=== PATIENT | male | born 1945 | race African-American/Black ===

== ENCOUNTER 2017-09-18 16:32 | Inpatient (IN) | payer MEDICARE ==
[2017-09-18 18:12] LABS: HEMATOCRIT 37.1 % (39.0-53.0); HEMOGLOBIN 12.1 g/dL (13.0-17.5); MEAN CORPUSCULAR HEMOGLOBIN 27 pg (25-35); MEAN CORPUSCULAR HGB CONC 33 g/dL (31-37); MEAN CORPUSCULAR VOLUME 82 fL (79-100); PLATELET COUNT 119 x10^3/uL (140-400); RED BLOOD COUNT 4.54 x10^6/uL (4.30-5.70); RED CELL DISTRIBUTION WIDTH 15.2 % (11.5-14.5)
[2017-09-18 18:20] LABS: BILIRUBIN,URINE NEGATIVE (NEG); CLARITY,URINE CLEAR; COLOR,URINE YELLOW; GLUCOSE,URINE >=1000 mg/dL (NEG); NITRITE,URINE NEGATIVE (NEG); PH,URINE 5.5; PROTEIN,URINE NEGATIVE (NEG-TRACE); UROBILINOGEN,URINE 0.2 mg/dL (0.2 mg/dL)
[2017-09-18 18:27] LABS: ANION GAP 13 (6-14); BLOOD UREA NITROGEN 76 mg/dL (8-26); BUN/CREATININE RATIO 7 (6-20); CARBON DIOXIDE 23 mmol/L (21-32); CHLORIDE 91 mmol/L (98-107); GFR 5.6; GLUCOSE 357 mg/dL (70-99); POTASSIUM 4.6 mmol/L (3.5-5.1); SODIUM 127 mmol/L (136-145)
[2017-09-18 18:33] LABS: ALBUMIN 2.8 g/dL (3.4-5.0); ALBUMIN/GLOBULIN RATIO 0.7 (1.0-1.7); ALK PHOS 56 U/L (46-116); ALT (SGPT) 8 U/L (16-63); AST (SGOT) 11 U/L (15-37); BACTERIA,URINE 0 /HPF (0-FEW); HYALINE CASTS, URINE FEW /HPF; SQUAMOUS EPITHELIAL CELL,UR FEW /LPF; TOTAL BILIRUBIN 0.4 mg/dL (0.2-1.0); TOTAL PROTEIN 7.1 g/dL (6.4-8.2)
[2017-09-18] MEDS ORDERED: MORPHINE SULFATE 4 MG/ML DISP.SYRIN. IV (19:30)
[2017-09-18] MEDS ORDERED: ONDANSETRON PF 4 MG/2 ML VIAL. IV (19:30)
[2017-09-18 19:56] LABS: AGAP ISTAT 13 mmol/L (6-14); BUN ISTAT 83 mg/dL (8-26); CHLORIDE ISTAT 101 mmol/L (98-110); CREATININE ISTAT 9.2 mg/dL (0.5-1.4); GLUCOSE ISTAT 314 mg/dL (70-99); HEMATOCRIT ISTAT 33 % (37-52); HEMOGLOBIN ISTAT 11.2 g/dL (14-18); ION CA ISTAT 0.82 mmol/L (1.13-1.32); POTASSIUM ISTAT 5.9 mmol/L (3.5-5.0); SODIUM ISTAT 130 mmol/L (135-145); TOT CO2 ISTAT 23 mmol/L (23-32)
[2017-09-18] MEDS: LABETALOL 20 MG/4 ML DISP.SYRIN. IVP (22:07)
[2017-09-19 00:15] LABS: INFLUENZA A PATIENT NEGATIVE (NEGATIVE); INFLUENZA B PATIENT NEGATIVE (NEGATIVE); OBC FLU VALID
[2017-09-19 06:05] LABS: ADD MAN DIFF? NO
[2017-09-19 06:35] LABS: BASO % 1 % (0-3); EOS # 0.1 x10^3/uL (0.0-0.7); EOS % 2 % (0-3); HEMATOCRIT 37.8 % (39.0-53.0); HEMOGLOBIN 12.2 g/dL (13.0-17.5); LYMPH % 15 % (24-48); MEAN CORPUSCULAR HEMOGLOBIN 26 pg (25-35); MEAN CORPUSCULAR HGB CONC 32 g/dL (31-37); MEAN CORPUSCULAR VOLUME 82 fL (79-100); MONO # 0.7 x10^3/uL (0.0-1.1); MONO % 10 % (0-9); NEUT # 4.7 x10^3uL (1.8-7.7); NEUT % 72 % (31-73); PLATELET COUNT 133 x10^3/uL (140-400); RED BLOOD COUNT 4.64 x10^6/uL (4.30-5.70); RED CELL DISTRIBUTION WIDTH 15.6 % (11.5-14.5); WHITE BLOOD COUNT 6.6 x10^3/uL (4.0-11.0)
[2017-09-19 06:45] LABS: ALBUMIN 2.8 g/dL (3.4-5.0); ALBUMIN/GLOBULIN RATIO 0.6 (1.0-1.7); ALK PHOS 51 U/L (46-116); ALT (SGPT) 15 U/L (16-63); ANION GAP 9 (6-14); AST (SGOT) 14 U/L (15-37); BLOOD UREA NITROGEN 50 mg/dL (8-26); BUN/CREATININE RATIO 10 (6-20); CALCIUM 8.2 mg/dL (8.5-10.1); CARBON DIOXIDE 25 mmol/L (21-32); CHLORIDE 97 mmol/L (98-107); CREATININE 4.9 mg/dL (0.7-1.3); GFR 14.3; GLUCOSE 454 mg/dL (70-99); POTASSIUM 4.5 mmol/L (3.5-5.1); SODIUM 131 mmol/L (136-145); TOTAL BILIRUBIN 0.4 mg/dL (0.2-1.0); TOTAL PROTEIN 7.2 g/dL (6.4-8.2)
[2017-09-19 08:04] LABS: POC GLUCOSE 345 mg/dL (70-99)
[2017-09-19] MEDS ORDERED: DEXTROSE 50% 25 GM / 50ML DISP.SYRIN. IV (08:45)
[2017-09-19] MEDS: LEVOTHYROXINE 150 MCG TABLET PO (09:01)
[2017-09-19] MEDS: METOPROLOL SUCC 24HR ER 50 MG TAB.ER.24H. PO ×2 (09:01→21:20)
[2017-09-19] MEDS: DOXAZOSIN MESYLATE 4 MG TABLET. PO ×2 (09:02→21:20)
[2017-09-19] MEDS: INSULIN ASPART 300 UNITS/3 ML INSULN.PEN SQ ×6 (09:05→17:43)
[2017-09-19] MEDS ORDERED: MAGNESIUM SULFATE 2GM 50 ML IV (09:45)
[2017-09-19] MEDS: TAMSULOSIN 0.4 MG CAP.ER.24H. PO (11:15)
[2017-09-19] MEDS: FINASTERIDE 5 MG TABLET. PO (11:16)
[2017-09-19] MEDS: FLU VACC QS2017-18 (36MOS+)/PF 0.5 ML SYRINGE. VAX IM (11:18)
[2017-09-19] MEDS: IV 1/2 NORMAL SALINE 1,000 ML IV ×2 (11:18→23:09)
[2017-09-19 11:34] LABS: POC GLUCOSE 235 mg/dL (70-99)
[2017-09-19 17:15] LABS: POC GLUCOSE 439 mg/dL (70-99)
[2017-09-19 20:36] LABS: POC GLUCOSE 253 mg/dL (70-99)
[2017-09-19] MEDS: INSULIN DETEMIR 300 UNITS/3 ML INSULN.PEN. SQ (21:30)
[2017-09-20 04:37] LABS: HEMOGLOBIN 11.2 g/dL (13.0-17.5)
[2017-09-20 05:00] LABS: MAGNESIUM 1.7 mg/dL (1.8-2.4)
[2017-09-20 05:45] LABS: ALBUMIN 2.5 g/dL (3.4-5.0); ANION GAP 7 (6-14); BLOOD UREA NITROGEN 26 mg/dL (8-26); CARBON DIOXIDE 26 mmol/L (21-32); CHLORIDE 102 mmol/L (98-107); CREATININE 1.6 mg/dL (0.7-1.3); GLUCOSE 180 mg/dL (70-99); PHOSPHORUS 2.4 mg/dL (2.6-4.7); POTASSIUM 4.3 mmol/L (3.5-5.1); SODIUM 135 mmol/L (136-145)
[2017-09-20] MEDS: LEVOTHYROXINE 150 MCG TABLET PO (05:59)
[2017-09-20] MEDS: INSULIN ASPART 300 UNITS/3 ML INSULN.PEN SQ ×5 (08:00→17:17)
[2017-09-20] MEDS: FINASTERIDE 5 MG TABLET. PO (08:14)
[2017-09-20] MEDS: DOXAZOSIN MESYLATE 4 MG TABLET. PO (08:15)
[2017-09-20] MEDS: TAMSULOSIN 0.4 MG CAP.ER.24H. PO ×2 (08:15→11:26)
[2017-09-20] MEDS: METOPROLOL SUCC 24HR ER 50 MG TAB.ER.24H. PO (08:16)
[2017-09-20 11:39] LABS: POC GLUCOSE 172 mg/dL (70-99)
[2017-09-20 11:39] LABS: POC GLUCOSE 140 mg/dL (70-99)
[2017-09-20] MEDS: MAGNESIUM SULFATE 2GM 50 ML IV (12:11)
[2017-09-20] MEDS: POTASSIUM & SODIUM PHOSPHATES PACKET. PO (13:03)
[2017-09-20 16:45] LABS: POC GLUCOSE 136 mg/dL (70-99)
== END 2017-09-20 18:02 | disposition home or self-care (01) | DRG 693 ==
LOC: 5 NORTH 21:05 → ER 16:32 → 5 NORTH 19:23
PROC: 0T9B70Z Drainage of Bladder with Drainage Device, Via Natural or Artificial Opening (ICD-10-PCS; principal; 2017-09-18)
DX: N13.8 Other obstructive and reflux uropathy (principal); N17.0 Acute kidney failure with tubular necrosis; E44.1 Mild protein-calorie malnutrition; N39.0 Urinary tract infection, site not specified; N13.30 Unspecified hydronephrosis; E11.22 Type 2 diabetes mellitus with diabetic chronic kidney disease; E11.65 Type 2 diabetes mellitus with hyperglycemia; E83.42 Hypomagnesemia; N40.1 Benign prostatic hyperplasia with lower urinary tract symptoms; R33.8 Other retention of urine; I86.1 Scrotal varices; N50.3 Cyst of epididymis; N32.0 Bladder-neck obstruction; N18.9 Chronic kidney disease, unspecified; I10 Essential (primary) hypertension; Z77.22 Contact with and (suspected) exposure to environmental tobacco smoke (acute) (chronic); Z83.3 Family history of diabetes mellitus; Z82.49 Family history of ischemic heart disease and other diseases of the circulatory system; Z79.4 Long term (current) use of insulin
CPT/HCPCS: 36415; 51702; 76770; 76870; 80047; 80053; 80069; 81001; 82962; 83735; 85018; 85025; 85027; 87804; 87804-59; 90686; 99285-25; J1815; J3490; J7060

== ENCOUNTER 2017-10-06 14:28 | Inpatient (IN) | payer MEDICARE ==
[2017-10-06 15:13] LABS: ADD MAN DIFF? NO
[2017-10-06 15:15] LABS: BASO % 0 % (0-3); EOS % 0 % (0-3); HEMATOCRIT 24.2 % (39.0-53.0); HEMOGLOBIN 7.7 g/dL (13.0-17.5); LYMPH # 0.7 x10^3/uL (1.0-4.8); LYMPH % 9 % (24-48); MEAN CORPUSCULAR HEMOGLOBIN 27 pg (25-35); MEAN CORPUSCULAR HGB CONC 32 g/dL (31-37); MEAN CORPUSCULAR VOLUME 83 fL (79-100); MONO # 0.5 x10^3/uL (0.0-1.1); MONO % 6 % (0-9); NEUT # 6.6 x10^3uL (1.8-7.7); NEUT % 84 % (31-73); PLATELET COUNT 161 x10^3/uL (140-400); RED BLOOD COUNT 2.91 x10^6/uL (4.30-5.70); RED CELL DISTRIBUTION WIDTH 14.4 % (11.5-14.5); WHITE BLOOD COUNT 7.8 x10^3/uL (4.0-11.0)
[2017-10-06 15:25] LABS: INR 1.3 (0.8-1.1); PROTHROMBIN TIME PATIENT 15.7 SEC (11.7-14.0)
[2017-10-06 15:28] LABS: ALBUMIN 2.2 g/dL (3.4-5.0); ALBUMIN/GLOBULIN RATIO 0.5 (1.0-1.7); ALK PHOS 87 U/L (46-116); ALT (SGPT) 21 U/L (16-63); ANION GAP 11 (6-14); AST (SGOT) 11 U/L (15-37); BLOOD UREA NITROGEN 110 mg/dL (8-26); BUN/CREATININE RATIO 9 (6-20); CALCIUM 7.1 mg/dL (8.5-10.1); CARBON DIOXIDE 19 mmol/L (21-32); CHLORIDE 84 mmol/L (98-107); CREATININE 12.5 mg/dL (0.7-1.3); GFR 4.8; LIPASE 115 U/L (73-393); TOTAL BILIRUBIN 0.2 mg/dL (0.2-1.0); TOTAL PROTEIN 6.7 g/dL (6.4-8.2)
[2017-10-06 15:56] LABS: GLUCOSE 859 mg/dL (70-99)
[2017-10-06 15:57] LABS: POTASSIUM 7.2 mmol/L (3.5-5.1); SODIUM 114 mmol/L (136-145)
[2017-10-06] MEDS: INSULIN REGULAR 100 UNIT/ML 10ML VIAL. IV (16:15)
[2017-10-06 16:17] LABS: BILIRUBIN,URINE NEGATIVE (NEG); CLARITY,URINE TURBID; COLOR,URINE RED; GLUCOSE,URINE >=1000 mg/dL (NEG); NITRITE,URINE NEGATIVE (NEG); PROTEIN,URINE 100 mg/dL (NEG-TRACE); UROBILINOGEN,URINE 0.2 mg/dL (0.2 mg/dL)
[2017-10-06 16:23] LABS: FECAL OB PT POSITIVE (NEG); NEG OBC FOB NEG; POS OBC FOB POS
[2017-10-06] MEDS ORDERED: INSULIN REGULAR VIAL 150 UNIT in 0.9 % SODIUM CHLORIDE 150ML 150 ML IV (16:30)
[2017-10-06 16:38] LABS: RBC,URINE TNTC /HPF (0-2); WBC,URINE 20-40 /HPF (0-4)
[2017-10-06 16:39] LABS: BACTERIA,URINE 0 /HPF (0-FEW); YEAST,URINE PRESENT /HPF
[2017-10-06] MEDS ORDERED: MORPHINE SULFATE 2 MG/ML DISP.SYRIN. IV (16:45)
[2017-10-06] MEDS ORDERED: fentaNYL PF VIAL 100 MCG/2 ML VIAL IV ×2 (16:45→17:00)
[2017-10-06] MEDS: SODIUM BICARB ADULT 8.4% 50 MEQ/50 ML DISP.SYRIN. IV (16:47)
[2017-10-06] MEDS: CALCIUM GLUCONATE 1,000 MG/10 ML VIAL. IVP (16:48)
[2017-10-06] MEDS ORDERED: ONDANSETRON PF 4 MG/2 ML VIAL. IV (17:00)
[2017-10-06] MEDS: INSULIN,REGULAR 150 UNIT DRIP 150 ML IV (17:09)
[2017-10-06 18:24] LABS: POC GLUCOSE 481 mg/dL (70-99)
[2017-10-06] MEDS: IV NORMAL SALINE 1000ML BAG 1,000 ML IV (18:30)
[2017-10-06 20:20] LABS: ANION GAP 10 (6-14); BLOOD UREA NITROGEN 92 mg/dL (8-26); CALCIUM 7.9 mg/dL (8.5-10.1); CARBON DIOXIDE 21 mmol/L (21-32); CHLORIDE 96 mmol/L (98-107); CREATININE 9.2 mg/dL (0.7-1.3); GFR 6.9; GLUCOSE 397 mg/dL (70-99); POTASSIUM 5.3 mmol/L (3.5-5.1); SODIUM 127 mmol/L (136-145)
[2017-10-06 20:52] LABS: POC GLUCOSE 397 mg/dL (70-99)
[2017-10-06] MEDS: METOPROLOL SUCC 24HR ER 50 MG TAB.ER.24H. PO (21:05)
[2017-10-06] MEDS: DOXAZOSIN MESYLATE 4 MG TABLET. PO (21:06)
[2017-10-06 21:59] LABS: POC GLUCOSE 262 mg/dL (70-99)
[2017-10-06 23:20] LABS: POC GLUCOSE 191 mg/dL (70-99)
[2017-10-07 00:11] LABS: POC GLUCOSE 158 mg/dL (70-99)
[2017-10-07 01:19] LABS: POC GLUCOSE 126 mg/dL (70-99)
[2017-10-07 02:23] LABS: POC GLUCOSE 101 mg/dL (70-99)
[2017-10-07 03:41] LABS: ADD MAN DIFF? NO
[2017-10-07 03:46] LABS: BASO # 0.1 x10^3/uL (0.0-0.2); BASO % 1 % (0-3); EOS # 0.2 x10^3/uL (0.0-0.7); EOS % 2 % (0-3); LYMPH # 1.3 x10^3/uL (1.0-4.8); LYMPH % 17 % (24-48); MEAN CORPUSCULAR HEMOGLOBIN 26 pg (25-35); MEAN CORPUSCULAR HGB CONC 33 g/dL (31-37); MEAN CORPUSCULAR VOLUME 79 fL (79-100); MONO # 0.8 x10^3/uL (0.0-1.1); MONO % 10 % (0-9); NEUT # 5.2 x10^3uL (1.8-7.7); NEUT % 70 % (31-73); PLATELET COUNT 152 x10^3/uL (140-400); RED BLOOD COUNT 2.49 x10^6/uL (4.30-5.70); RED CELL DISTRIBUTION WIDTH 14.5 % (11.5-14.5); WHITE BLOOD COUNT 7.4 x10^3/uL (4.0-11.0)
[2017-10-07 03:47] LABS: HEMATOCRIT 19.7 % (39.0-53.0); HEMOGLOBIN 6.6 g/dL (13.0-17.5)
[2017-10-07] MEDS: IV NORMAL SALINE 1000ML BAG 1,000 ML IV ×2 (04:04→13:42)
[2017-10-07 04:22] LABS: ANION GAP 9 (6-14); BLOOD UREA NITROGEN 74 mg/dL (8-26); CALCIUM 7.8 mg/dL (8.5-10.1); CARBON DIOXIDE 23 mmol/L (21-32); CHLORIDE 100 mmol/L (98-107); CREATININE 5.6 mg/dL (0.7-1.3); GFR 12.2; GLUCOSE 108 mg/dL (70-99); POTASSIUM 4.6 mmol/L (3.5-5.1); SODIUM 132 mmol/L (136-145)
[2017-10-07] MEDS: LEVOTHYROXINE 150 MCG TABLET PO (06:30)
[2017-10-07] MEDS: FINASTERIDE 5 MG TABLET. PO (08:17)
[2017-10-07] MEDS: DOXAZOSIN MESYLATE 4 MG TABLET. PO ×2 (08:17→21:18)
[2017-10-07] MEDS: METOPROLOL SUCC 24HR ER 50 MG TAB.ER.24H. PO ×2 (08:18→21:18)
[2017-10-07 08:21] LABS: POC GLUCOSE 326 mg/dL (70-99)
[2017-10-07 08:29] LABS: POC GLUCOSE 148 mg/dL (70-99)
[2017-10-07 09:06] LABS: IMMEDIATE SPIN CROSSMATCH 1 2
[2017-10-07] MEDS ORDERED: MAGNESIUM SULFATE 2GM 50 ML IV (09:15)
[2017-10-07 09:30] LABS: % SAT IRON 25 % (15-34); IRON,SERUM 37 ug/dL (65-175)
[2017-10-07] MEDS ORDERED: MORPHINE SULFATE 2 MG/ML DISP.SYRIN. IV (09:30)
[2017-10-07] MEDS ORDERED: DEXTROSE 50% 25 GM / 50ML DISP.SYRIN. IV ×2 (09:30→19:00)
[2017-10-07] MEDS ORDERED: DOCUSATE SODIUM 100 MG CAPSULE. PO (09:30)
[2017-10-07] MEDS ORDERED: hydrALAZINE 20 MG/ML VIAL. IVP (09:30)
[2017-10-07] MEDS ORDERED: ONDANSETRON PF 4 MG/2 ML VIAL. IV (09:30)
[2017-10-07] MEDS ORDERED: traMADol 50 MG TABLET PO (09:30)
[2017-10-07 09:44] LABS: FERRITIN 418 ng/mL (26-388)
[2017-10-07] MEDS: PANTOPRAZOLE 40 MG TABLET.DR. PO (11:49)
[2017-10-07] MEDS: INSULIN ASPART 300 UNITS/3 ML INSULN.PEN SQ ×3 (12:00→21:19)
[2017-10-07 12:09] LABS: POC GLUCOSE 243 mg/dL (70-99)
[2017-10-07 14:15] LABS: RETIC COUNT 0.3 % (0.5-2.5)
[2017-10-07 16:26] LABS: MRSA BY PCR Negative (Negative)
[2017-10-07 18:22] LABS: POC GLUCOSE 362 mg/dL (70-99)
[2017-10-07 20:33] LABS: POC GLUCOSE 377 mg/dL (70-99)
[2017-10-07] MEDS: INSULIN DETEMIR 300 UNITS/3 ML INSULN.PEN. SQ (21:19)
[2017-10-08] MEDS: IV NORMAL SALINE 1000ML BAG 1,000 ML IV ×3 (00:14→18:45)
[2017-10-08 05:03] LABS: ADD MAN DIFF? NO
[2017-10-08 05:17] LABS: BASO # 0.1 x10^3/uL (0.0-0.2); BASO % 1 % (0-3); EOS # 0.2 x10^3/uL (0.0-0.7); EOS % 3 % (0-3); LYMPH # 1.3 x10^3/uL (1.0-4.8); LYMPH % 19 % (24-48); MEAN CORPUSCULAR HEMOGLOBIN 27 pg (25-35); MEAN CORPUSCULAR HGB CONC 34 g/dL (31-37); MEAN CORPUSCULAR VOLUME 80 fL (79-100); MONO # 0.7 x10^3/uL (0.0-1.1); MONO % 10 % (0-9); NEUT # 4.7 x10^3uL (1.8-7.7); NEUT % 67 % (31-73); PLATELET COUNT 175 x10^3/uL (140-400); RED BLOOD COUNT 2.56 x10^6/uL (4.30-5.70); RED CELL DISTRIBUTION WIDTH 14.8 % (11.5-14.5)
[2017-10-08] MEDS: LEVOTHYROXINE 150 MCG TABLET PO (05:23)
[2017-10-08 05:32] LABS: % SAT IRON 19 % (15-34); IRON,SERUM 28 ug/dL (65-175)
[2017-10-08 05:45] LABS: FERRITIN 376 ng/mL (26-388)
[2017-10-08 05:54] LABS: ALBUMIN 1.9 g/dL (3.4-5.0); ANION GAP 5 (6-14); BLOOD UREA NITROGEN 31 mg/dL (8-26); CALCIUM 7.5 mg/dL (8.5-10.1); CARBON DIOXIDE 26 mmol/L (21-32); CHLORIDE 108 mmol/L (98-107); CREATININE 1.7 mg/dL (0.7-1.3); GFR 48.5; GLUCOSE 234 mg/dL (70-99); MAGNESIUM 1.6 mg/dL (1.8-2.4); PHOSPHORUS 3.1 mg/dL (2.6-4.7); POTASSIUM 4.4 mmol/L (3.5-5.1); SODIUM 139 mmol/L (136-145)
[2017-10-08 06:00] LABS: HEMATOCRIT 20.5 % (39.0-53.0); HEMOGLOBIN 6.9 g/dL (13.0-17.5)
[2017-10-08 07:51] LABS: POC GLUCOSE 172 mg/dL (70-99)
[2017-10-08 08:11] LABS: FOLATE 5.69 ng/ml (3.2-20.0)
[2017-10-08 08:11] LABS: VITAMIN-B12 326 pg/mL (247-911)
[2017-10-08] MEDS: METOPROLOL SUCC 24HR ER 50 MG TAB.ER.24H. PO ×2 (08:16→20:46)
[2017-10-08] MEDS: DOXAZOSIN MESYLATE 4 MG TABLET. PO ×2 (08:16→20:46)
[2017-10-08] MEDS: PANTOPRAZOLE 40 MG TABLET.DR. PO (08:16)
[2017-10-08] MEDS: FINASTERIDE 5 MG TABLET. PO (08:16)
[2017-10-08] MEDS: INSULIN ASPART 300 UNITS/3 ML INSULN.PEN SQ ×4 (08:27→20:50)
[2017-10-08] MEDS: GABAPENTIN 100 MG CAPSULE. PO ×2 (09:31→20:46)
[2017-10-08 10:35] LABS: IMMEDIATE SPIN CROSSMATCH 1
[2017-10-08 11:49] LABS: POC GLUCOSE 201 mg/dL (70-99)
[2017-10-08 12:07] LABS: POC GLUCOSE 219 mg/dL (70-99)
[2017-10-08 12:37] LABS: FECAL OB PT POSITIVE (NEG); NEG OBC FOB NEG; POS OBC FOB POS
[2017-10-08 16:38] LABS: HEMATOCRIT 24.4 % (39.0-53.0)
[2017-10-08 16:57] LABS: POC GLUCOSE 265 mg/dL (70-99)
[2017-10-08] MEDS: INSULIN DETEMIR 300 UNITS/3 ML INSULN.PEN. SQ (20:50)
[2017-10-09] MEDS: IV NORMAL SALINE 1000ML BAG 1,000 ML IV ×2 (04:45→14:15)
[2017-10-09 04:51] LABS: ADD MAN DIFF? NO
[2017-10-09 04:57] LABS: BASO # 0.1 x10^3/uL (0.0-0.2); BASO % 1 % (0-3); EOS # 0.3 x10^3/uL (0.0-0.7); EOS % 5 % (0-3); HEMATOCRIT 25.1 % (39.0-53.0); HEMOGLOBIN 8.3 g/dL (13.0-17.5); LYMPH # 1.7 x10^3/uL (1.0-4.8); LYMPH % 23 % (24-48); MEAN CORPUSCULAR HEMOGLOBIN 27 pg (25-35); MEAN CORPUSCULAR HGB CONC 33 g/dL (31-37); MEAN CORPUSCULAR VOLUME 82 fL (79-100); MONO # 0.6 x10^3/uL (0.0-1.1); MONO % 8 % (0-9); NEUT # 4.5 x10^3uL (1.8-7.7); NEUT % 63 % (31-73); PLATELET COUNT 198 x10^3/uL (140-400); RED BLOOD COUNT 3.08 x10^6/uL (4.30-5.70); RED CELL DISTRIBUTION WIDTH 14.8 % (11.5-14.5); WHITE BLOOD COUNT 7.2 x10^3/uL (4.0-11.0)
[2017-10-09 05:20] LABS: ALBUMIN 2.1 g/dL (3.4-5.0); ANION GAP 8 (6-14); BLOOD UREA NITROGEN 17 mg/dL (8-26); CALCIUM 8.3 mg/dL (8.5-10.1); CARBON DIOXIDE 26 mmol/L (21-32); CHLORIDE 104 mmol/L (98-107); CREATININE 1.4 mg/dL (0.7-1.3); GFR 60.6; GLUCOSE 188 mg/dL (70-99); MAGNESIUM 1.5 mg/dL (1.8-2.4); PHOSPHORUS 3.5 mg/dL (2.6-4.7); POTASSIUM 3.8 mmol/L (3.5-5.1); SODIUM 138 mmol/L (136-145)
[2017-10-09 06:32] LABS: POC GLUCOSE 258 mg/dL (70-99)
[2017-10-09] MEDS ORDERED: LIDOCAINE 1% PF 2 ML VIAL. ID (07:00)
[2017-10-09] MEDS ORDERED: ONDANSETRON PF 4 MG/2 ML VIAL. IV (07:00)
[2017-10-09] MEDS ORDERED: fentaNYL PF VIAL 100 MCG/2 ML VIAL IV ×2 (07:00)
[2017-10-09] MEDS: LEVOTHYROXINE 150 MCG TABLET PO (07:00)
[2017-10-09] MEDS ORDERED: MORPHINE SULFATE 2 MG/ML DISP.SYRIN. IV (07:00)
[2017-10-09] MEDS ORDERED: PROCHLORPERAZINE 10 MG/2 ML VIAL. IV (07:00)
[2017-10-09] MEDS: IV RINGERS,LACTATED 1000ML 1,000 ML IV (07:00)
[2017-10-09] MEDS: PANTOPRAZOLE 40 MG TABLET.DR. PO (07:30)
[2017-10-09] MEDS: INSULIN ASPART 300 UNITS/3 ML INSULN.PEN SQ ×4 (08:00→21:08)
[2017-10-09 08:35] LABS: POC GLUCOSE 143 mg/dL (70-99)
[2017-10-09] MEDS: GABAPENTIN 100 MG CAPSULE. PO (09:00)
[2017-10-09] MEDS: METOPROLOL SUCC 24HR ER 50 MG TAB.ER.24H. PO ×2 (09:00→21:00)
[2017-10-09] MEDS: DOXAZOSIN MESYLATE 4 MG TABLET. PO ×2 (09:00→21:01)
[2017-10-09] MEDS: FINASTERIDE 5 MG TABLET. PO (09:00)
[2017-10-09] MEDS: MAGNESIUM SULFATE 2GM 50 ML IV (11:14)
[2017-10-09 12:48] LABS: POC GLUCOSE 176 mg/dL (70-99)
[2017-10-09] MEDS: GABAPENTIN 300 MG CAPSULE. PO ×2 (12:50→21:01)
[2017-10-09 13:44] LABS: POC GLUCOSE 274 mg/dL (70-99)
[2017-10-09 17:35] LABS: POC GLUCOSE 527 mg/dL (70-99)
[2017-10-09] MEDS: FLUCONAZOLE 100 MG TABLET. PO (17:44)
[2017-10-09 20:04] LABS: POC GLUCOSE 447 mg/dL (70-99)
[2017-10-09] MEDS: ACETAMINOPHEN 325 MG TABLET. PO (21:00)
[2017-10-09] MEDS: INSULIN DETEMIR 300 UNITS/3 ML INSULN.PEN. SQ (21:08)
[2017-10-09 22:45] LABS: POC GLUCOSE 461 mg/dL (70-99)
[2017-10-10] MEDS: IV NORMAL SALINE 1000ML BAG 1,000 ML IV ×3 (00:07→20:45)
[2017-10-10 04:54] LABS: ALBUMIN 2.2 g/dL (3.4-5.0); ANION GAP 7 (6-14); BLOOD UREA NITROGEN 17 mg/dL (8-26); CALCIUM 7.8 mg/dL (8.5-10.1); CARBON DIOXIDE 25 mmol/L (21-32); CHLORIDE 97 mmol/L (98-107); CREATININE 1.9 mg/dL (0.7-1.3); GFR 42.6; GLUCOSE 433 mg/dL (70-99); MAGNESIUM 1.7 mg/dL (1.8-2.4); PHOSPHORUS 3.2 mg/dL (2.6-4.7); POTASSIUM 3.9 mmol/L (3.5-5.1); SODIUM 129 mmol/L (136-145)
[2017-10-10] MEDS: LEVOTHYROXINE 150 MCG TABLET PO (06:13)
[2017-10-10 08:28] LABS: POC GLUCOSE 339 mg/dL (70-99)
[2017-10-10] MEDS: DOXAZOSIN MESYLATE 4 MG TABLET. PO ×2 (08:36→20:25)
[2017-10-10] MEDS: FLUCONAZOLE 100 MG TABLET. PO (08:36)
[2017-10-10] MEDS: ACETAMINOPHEN 325 MG TABLET. PO (08:36)
[2017-10-10] MEDS: GABAPENTIN 300 MG CAPSULE. PO ×3 (08:36→20:25)
[2017-10-10] MEDS: PANTOPRAZOLE 40 MG TABLET.DR. PO (08:37)
[2017-10-10] MEDS: FINASTERIDE 5 MG TABLET. PO (08:37)
[2017-10-10] MEDS: METOPROLOL SUCC 24HR ER 50 MG TAB.ER.24H. PO ×2 (08:37→20:26)
[2017-10-10] MEDS: INSULIN ASPART 300 UNITS/3 ML INSULN.PEN SQ ×6 (08:41→20:28)
[2017-10-10 12:09] LABS: POC GLUCOSE 272 mg/dL (70-99)
[2017-10-10] MEDS: DOXYCYCLINE HYCLATE 100 MG TABLET PO ×2 (12:43→20:25)
[2017-10-10 14:44] LABS: HEMATOCRIT 24.9 % (39.0-53.0); MEAN CORPUSCULAR HEMOGLOBIN 27 pg (25-35); MEAN CORPUSCULAR HGB CONC 32 g/dL (31-37); MEAN CORPUSCULAR VOLUME 83 fL (79-100); PLATELET COUNT 202 x10^3/uL (140-400); RED BLOOD COUNT 2.99 x10^6/uL (4.30-5.70); RED CELL DISTRIBUTION WIDTH 15.1 % (11.5-14.5); WHITE BLOOD COUNT 8.8 x10^3/uL (4.0-11.0)
[2017-10-10 17:29] LABS: POC GLUCOSE 276 mg/dL (70-99)
[2017-10-10 19:39] LABS: POC GLUCOSE 359 mg/dL (70-99)
[2017-10-10] MEDS: LACTOBACILLUS RHAMNOSUS GG 1 CAPSULE. PO (20:26)
[2017-10-10] MEDS: INSULIN DETEMIR 300 UNITS/3 ML INSULN.PEN. SQ (20:29)
[2017-10-11] MEDS: IV NORMAL SALINE 1000ML BAG 1,000 ML IV ×2 (00:37→16:58)
[2017-10-11 04:55] LABS: ADD MAN DIFF? NO
[2017-10-11 05:00] LABS: BASO # 0.1 x10^3/uL (0.0-0.2); BASO % 1 % (0-3); EOS # 0.3 x10^3/uL (0.0-0.7); EOS % 4 % (0-3); HEMATOCRIT 22.3 % (39.0-53.0); HEMOGLOBIN 7.4 g/dL (13.0-17.5); LYMPH # 1.9 x10^3/uL (1.0-4.8); LYMPH % 23 % (24-48); MEAN CORPUSCULAR HEMOGLOBIN 27 pg (25-35); MEAN CORPUSCULAR HGB CONC 33 g/dL (31-37); MEAN CORPUSCULAR VOLUME 82 fL (79-100); MONO # 0.8 x10^3/uL (0.0-1.1); MONO % 10 % (0-9); NEUT # 5.3 x10^3uL (1.8-7.7); NEUT % 63 % (31-73); PLATELET COUNT 208 x10^3/uL (140-400); RED BLOOD COUNT 2.73 x10^6/uL (4.30-5.70); RED CELL DISTRIBUTION WIDTH 15.2 % (11.5-14.5); WHITE BLOOD COUNT 8.5 x10^3/uL (4.0-11.0)
[2017-10-11 05:33] LABS: MAGNESIUM 1.7 mg/dL (1.8-2.4)
[2017-10-11 05:39] LABS: ANION GAP 7 (6-14); BLOOD UREA NITROGEN 18 mg/dL (8-26); CALCIUM 7.7 mg/dL (8.5-10.1); CARBON DIOXIDE 25 mmol/L (21-32); CHLORIDE 103 mmol/L (98-107); CREATININE 1.8 mg/dL (0.7-1.3); GFR 45.4; GLUCOSE 248 mg/dL (70-99); PHOSPHORUS 3.3 mg/dL (2.6-4.7); POTASSIUM 3.9 mmol/L (3.5-5.1); SODIUM 135 mmol/L (136-145)
[2017-10-11] MEDS: LEVOTHYROXINE 150 MCG TABLET PO (06:21)
[2017-10-11] MEDS: INSULIN ASPART 300 UNITS/3 ML INSULN.PEN SQ ×7 (07:30→21:03)
[2017-10-11] MEDS: PANTOPRAZOLE 40 MG TABLET.DR. PO (07:30)
[2017-10-11] MEDS: LACTOBACILLUS RHAMNOSUS GG 1 CAPSULE. PO ×2 (07:46→20:59)
[2017-10-11 08:23] LABS: POC GLUCOSE 215 mg/dL (70-99)
[2017-10-11] MEDS: DOXAZOSIN MESYLATE 4 MG TABLET. PO ×2 (08:51→21:00)
[2017-10-11] MEDS: DOXYCYCLINE HYCLATE 100 MG TABLET PO ×2 (08:51→20:59)
[2017-10-11] MEDS: FLUCONAZOLE 100 MG TABLET. PO (08:52)
[2017-10-11] MEDS: METOPROLOL SUCC 24HR ER 50 MG TAB.ER.24H. PO ×2 (08:52→20:59)
[2017-10-11] MEDS: FINASTERIDE 5 MG TABLET. PO (08:53)
[2017-10-11] MEDS: GABAPENTIN 300 MG CAPSULE. PO ×3 (08:53→21:00)
[2017-10-11] MEDS ORDERED: LIDOCAINE 2%/EPI 1:100,000 20 ML VIAL. (09:40)
[2017-10-11] MEDS ORDERED: IOHEXOL 300 MG/ML 100ML VIAL. (09:40)
[2017-10-11] MEDS ORDERED: MIDAZOLAM HCL/PF 2 MG/2 ML VIAL. (10:15)
[2017-10-11] MEDS ORDERED: fentaNYL PF VIAL 100 MCG/2 ML VIAL (10:15)
[2017-10-11] MEDS ORDERED: CONTRAST GIVEN MC (10:30)
[2017-10-11] MEDS: LIDOCAINE 2%/EPI 1:100,000 20 ML VIAL. IJ (10:58)
[2017-10-11] MEDS: fentaNYL PF VIAL 100 MCG/2 ML VIAL IV (10:58)
[2017-10-11] MEDS: IOHEXOL 300 MG/ML 100ML VIAL. IART (10:58)
[2017-10-11] MEDS: MIDAZOLAM HCL/PF 2 MG/2 ML VIAL. IV (10:58)
[2017-10-11] MEDS: MAGNESIUM SULFATE 2GM 50 ML IV (11:00)
[2017-10-11 11:32] LABS: POC GLUCOSE 136 mg/dL (70-99)
[2017-10-11] MEDS ORDERED: IRON SUCROSE COMPLEX 200 MG in IV NORMAL SALINE 100ML 100 ML IV (15:45)
[2017-10-11] MEDS: VITAMIN B12,B9,B6 COMPLEX 1 TABLET. PO (15:59)
[2017-10-11] MEDS: IRON SUCROSE COMPLEX 100 MG/5 ML VIAL IVP (15:59)
[2017-10-11] MEDS: FERROUS SULFATE 325 MG TABLET. PO (16:00)
[2017-10-11 16:50] LABS: POC GLUCOSE 379 mg/dL (70-99)
[2017-10-11 20:50] LABS: POC GLUCOSE 308 mg/dL (70-99)
[2017-10-11] MEDS: INSULIN DETEMIR 300 UNITS/3 ML INSULN.PEN. SQ (21:04)
[2017-10-12] MEDS: IV NORMAL SALINE 1000ML BAG 1,000 ML IV ×2 (02:28→14:57)
[2017-10-12] MEDS: PANTOPRAZOLE 40 MG TABLET.DR. PO (04:24)
[2017-10-12] MEDS: LEVOTHYROXINE 150 MCG TABLET PO (04:24)
[2017-10-12 05:44] LABS: ALBUMIN 2.2 g/dL (3.4-5.0); ANION GAP 8 (6-14); BLOOD UREA NITROGEN 12 mg/dL (8-26); CALCIUM 7.7 mg/dL (8.5-10.1); CARBON DIOXIDE 25 mmol/L (21-32); CHLORIDE 101 mmol/L (98-107); CREATININE 1.3 mg/dL (0.7-1.3); GLUCOSE 458 mg/dL (70-99); PHOSPHORUS 2.8 mg/dL (2.6-4.7); POTASSIUM 4.1 mmol/L (3.5-5.1); SODIUM 134 mmol/L (136-145)
[2017-10-12 06:01] LABS: MAGNESIUM 1.6 mg/dL (1.8-2.4)
[2017-10-12] MEDS: MAGNESIUM SULFATE 2GM 50 ML IV (06:17)
[2017-10-12] MEDS: INSULIN ASPART 300 UNITS/3 ML INSULN.PEN SQ ×8 (07:30→21:58)
[2017-10-12] MEDS: ACETAMINOPHEN 325 MG TABLET. PO ×2 (07:34→20:50)
[2017-10-12 07:54] LABS: POC GLUCOSE 453 mg/dL (70-99)
[2017-10-12] MEDS: VITAMIN B12,B9,B6 COMPLEX 1 TABLET. PO (08:41)
[2017-10-12] MEDS: DOXAZOSIN MESYLATE 4 MG TABLET. PO ×2 (08:41→20:50)
[2017-10-12] MEDS: LACTOBACILLUS RHAMNOSUS GG 1 CAPSULE. PO ×2 (08:42→20:52)
[2017-10-12] MEDS: FERROUS SULFATE 325 MG TABLET. PO (08:42)
[2017-10-12] MEDS: DOXYCYCLINE HYCLATE 100 MG TABLET PO ×2 (08:42→20:52)
[2017-10-12] MEDS: METOPROLOL SUCC 24HR ER 50 MG TAB.ER.24H. PO ×2 (08:42→20:52)
[2017-10-12] MEDS: FINASTERIDE 5 MG TABLET. PO (08:42)
[2017-10-12] MEDS: FLUCONAZOLE 100 MG TABLET. PO (08:42)
[2017-10-12] MEDS: GABAPENTIN 300 MG CAPSULE. PO ×3 (08:42→20:49)
[2017-10-12] MEDS ORDERED: MORPHINE SULFATE 4 MG/ML DISP.SYRIN. IV (09:39)
[2017-10-12 11:50] LABS: POC GLUCOSE 264 mg/dL (70-99)
[2017-10-12 16:15] LABS: POC GLUCOSE 145 mg/dL (70-99)
[2017-10-12 21:27] LABS: POC GLUCOSE 232 mg/dL (70-99)
[2017-10-12] MEDS: HYDROcodone/APAP 5/325MG 1 TAB TABLET PO (21:46)
[2017-10-12] MEDS: INSULIN DETEMIR 300 UNITS/3 ML INSULN.PEN. SQ (21:57)
[2017-10-13] MEDS: HYDROcodone/APAP 5/325MG 1 TAB TABLET PO (01:48)
[2017-10-13] MEDS: IV NORMAL SALINE 1000ML BAG 1,000 ML IV ×2 (01:51→09:11)
[2017-10-13 05:48] LABS: ANION GAP 8 (6-14); BLOOD UREA NITROGEN 13 mg/dL (8-26); CALCIUM 7.5 mg/dL (8.5-10.1); CARBON DIOXIDE 25 mmol/L (21-32); CHLORIDE 103 mmol/L (98-107); CREATININE 1.5 mg/dL (0.7-1.3); GLUCOSE 333 mg/dL (70-99); PHOSPHORUS 2.6 mg/dL (2.6-4.7); POTASSIUM 4.2 mmol/L (3.5-5.1); SODIUM 136 mmol/L (136-145)
[2017-10-13] MEDS: LEVOTHYROXINE 150 MCG TABLET PO (06:25)
[2017-10-13] MEDS: PANTOPRAZOLE 40 MG TABLET.DR. PO (07:31)
[2017-10-13 07:36] LABS: POC GLUCOSE 291 mg/dL (70-99)
[2017-10-13] MEDS: INSULIN ASPART 300 UNITS/3 ML INSULN.PEN SQ ×7 (07:58→20:47)
[2017-10-13] MEDS: METOPROLOL SUCC 24HR ER 50 MG TAB.ER.24H. PO ×2 (08:48→20:45)
[2017-10-13] MEDS: DOXAZOSIN MESYLATE 4 MG TABLET. PO ×2 (08:49→20:45)
[2017-10-13] MEDS: FERROUS SULFATE 325 MG TABLET. PO (08:49)
[2017-10-13] MEDS: FINASTERIDE 5 MG TABLET. PO (08:49)
[2017-10-13] MEDS: GABAPENTIN 300 MG CAPSULE. PO ×3 (08:49→20:44)
[2017-10-13] MEDS: DOXYCYCLINE HYCLATE 100 MG TABLET PO ×2 (08:49→20:45)
[2017-10-13] MEDS: VITAMIN B12,B9,B6 COMPLEX 1 TABLET. PO (08:50)
[2017-10-13] MEDS: FLUCONAZOLE 100 MG TABLET. PO (08:50)
[2017-10-13] MEDS: LACTOBACILLUS RHAMNOSUS GG 1 CAPSULE. PO ×2 (08:50→20:44)
[2017-10-13] MEDS ORDERED: NON FORMULARY ITEM (Dulaglutide (Trulicity) 0.75 MG) SQ (09:00)
[2017-10-13] MEDS: PEG 3350/NA SULF,BICARB,CL/KCL 4,000 ML SOLUTION. PO (09:06)
[2017-10-13 11:20] LABS: POC GLUCOSE 148 mg/dL (70-99)
[2017-10-13 20:19] LABS: POC GLUCOSE 201 mg/dL (70-99)
[2017-10-13] MEDS: INSULIN DETEMIR 300 UNITS/3 ML INSULN.PEN. SQ (20:48)
[2017-10-14] MEDS: IV NORMAL SALINE 1000ML BAG 1,000 ML IV ×4 (00:21→22:21)
[2017-10-14 05:59] LABS: ALBUMIN 1.9 g/dL (3.4-5.0); ANION GAP 7 (6-14); BLOOD UREA NITROGEN 9 mg/dL (8-26); CALCIUM 7.5 mg/dL (8.5-10.1); CARBON DIOXIDE 27 mmol/L (21-32); CHLORIDE 106 mmol/L (98-107); GFR 89.4; GLUCOSE 126 mg/dL (70-99); PHOSPHORUS 2.4 mg/dL (2.6-4.7); POTASSIUM 3.5 mmol/L (3.5-5.1); SODIUM 140 mmol/L (136-145)
[2017-10-14] MEDS: LEVOTHYROXINE 150 MCG TABLET PO (07:00)
[2017-10-14] MEDS ORDERED: ONDANSETRON PF 4 MG/2 ML VIAL. IV (07:00)
[2017-10-14] MEDS ORDERED: HYDROmorphone 2 MG/ML VIAL IV (07:00)
[2017-10-14] MEDS ORDERED: PROCHLORPERAZINE 10 MG/2 ML VIAL. IV (07:00)
[2017-10-14] MEDS ORDERED: MORPHINE SULFATE 2 MG/ML DISP.SYRIN. IV (07:00)
[2017-10-14] MEDS ORDERED: fentaNYL PF VIAL 100 MCG/2 ML VIAL IV ×2 (07:00)
[2017-10-14] MEDS ORDERED: LIDOCAINE 1% PF 2 ML VIAL. ID (07:00)
[2017-10-14] MEDS: INSULIN ASPART 300 UNITS/3 ML INSULN.PEN SQ ×7 (07:30→22:18)
[2017-10-14] MEDS: PANTOPRAZOLE 40 MG TABLET.DR. PO (07:30)
[2017-10-14] MEDS: FERROUS SULFATE 325 MG TABLET. PO (07:37)
[2017-10-14] MEDS: VITAMIN B12,B9,B6 COMPLEX 1 TABLET. PO (07:38)
[2017-10-14] MEDS: LACTOBACILLUS RHAMNOSUS GG 1 CAPSULE. PO ×2 (07:38→22:12)
[2017-10-14 08:08] LABS: POC GLUCOSE 73 mg/dL (70-99)
[2017-10-14] MEDS: METOPROLOL SUCC 24HR ER 50 MG TAB.ER.24H. PO ×2 (08:41→22:12)
[2017-10-14] MEDS: DOXAZOSIN MESYLATE 4 MG TABLET. PO ×2 (08:41→22:12)
[2017-10-14] MEDS: GABAPENTIN 300 MG CAPSULE. PO ×3 (09:00→22:13)
[2017-10-14 11:54] LABS: POC GLUCOSE 104 mg/dL (70-99)
[2017-10-14] MEDS: IV RINGERS,LACTATED 1000ML 1,000 ML IV (13:09)
[2017-10-14] MEDS ORDERED: PROPOFOL 40 ML IV (13:13)
[2017-10-14] MEDS ORDERED: PROPOFOL 20 ML IV (14:02)
[2017-10-14] MEDS: FINASTERIDE 5 MG TABLET. PO (15:40)
[2017-10-14] MEDS: DOXYCYCLINE HYCLATE 100 MG TABLET PO ×2 (15:40→22:13)
[2017-10-14] MEDS: FLUCONAZOLE 100 MG TABLET. PO (15:41)
[2017-10-14 17:20] LABS: POC GLUCOSE 157 mg/dL (70-99)
[2017-10-14 20:49] LABS: POC GLUCOSE 294 mg/dL (70-99)
[2017-10-14] MEDS: INSULIN DETEMIR 300 UNITS/3 ML INSULN.PEN. SQ (22:18)
[2017-10-14] MEDS: FUROSEMIDE 20 MG/2 ML VIAL. IVP (23:13)
[2017-10-15] MEDS: LEVOTHYROXINE 150 MCG TABLET PO (06:20)
[2017-10-15 08:05] LABS: POC GLUCOSE 197 mg/dL (70-99)
[2017-10-15] MEDS: DOXAZOSIN MESYLATE 4 MG TABLET. PO (08:19)
[2017-10-15] MEDS: DOXYCYCLINE HYCLATE 100 MG TABLET PO (08:19)
[2017-10-15] MEDS: LACTOBACILLUS RHAMNOSUS GG 1 CAPSULE. PO (08:20)
[2017-10-15] MEDS: FERROUS SULFATE 325 MG TABLET. PO (08:20)
[2017-10-15] MEDS: PANTOPRAZOLE 40 MG TABLET.DR. PO (08:20)
[2017-10-15] MEDS: FINASTERIDE 5 MG TABLET. PO (08:20)
[2017-10-15] MEDS: METOPROLOL SUCC 24HR ER 50 MG TAB.ER.24H. PO (08:20)
[2017-10-15] MEDS: GABAPENTIN 300 MG CAPSULE. PO ×2 (08:20→14:00)
[2017-10-15] MEDS: FLUCONAZOLE 100 MG TABLET. PO (08:20)
[2017-10-15] MEDS: VITAMIN B12,B9,B6 COMPLEX 1 TABLET. PO (08:20)
[2017-10-15] MEDS: INSULIN ASPART 300 UNITS/3 ML INSULN.PEN SQ ×4 (08:35→11:59)
[2017-10-15 10:10] LABS: ADD MAN DIFF? NO
[2017-10-15 10:14] LABS: BASO # 0.1 x10^3/uL (0.0-0.2); BASO % 1 % (0-3); EOS # 0.2 x10^3/uL (0.0-0.7); EOS % 3 % (0-3); HEMATOCRIT 23.3 % (39.0-53.0); HEMOGLOBIN 7.8 g/dL (13.0-17.5); LYMPH # 1.5 x10^3/uL (1.0-4.8); LYMPH % 19 % (24-48); MEAN CORPUSCULAR HEMOGLOBIN 28 pg (25-35); MEAN CORPUSCULAR HGB CONC 33 g/dL (31-37); MEAN CORPUSCULAR VOLUME 82 fL (79-100); MONO # 0.5 x10^3/uL (0.0-1.1); MONO % 6 % (0-9); NEUT # 5.5 x10^3uL (1.8-7.7); NEUT % 71 % (31-73); PLATELET COUNT 291 x10^3/uL (140-400); RED BLOOD COUNT 2.83 x10^6/uL (4.30-5.70); RED CELL DISTRIBUTION WIDTH 15.5 % (11.5-14.5); WHITE BLOOD COUNT 7.8 x10^3/uL (4.0-11.0)
[2017-10-15 10:29] LABS: ANION GAP 6 (6-14); BLOOD UREA NITROGEN 11 mg/dL (8-26); CALCIUM 8.1 mg/dL (8.5-10.1); CARBON DIOXIDE 29 mmol/L (21-32); CHLORIDE 102 mmol/L (98-107); CREATININE 1.2 mg/dL (0.7-1.3); GFR 72.4; GLUCOSE 172 mg/dL (70-99); POTASSIUM 3.8 mmol/L (3.5-5.1); SODIUM 137 mmol/L (136-145)
[2017-10-15 11:42] LABS: POC GLUCOSE 131 mg/dL (70-99)
== END 2017-10-15 16:06 | disposition home health service (06) | DRG 377 ==
LOC: 5 NORTH 10-13 09:07 → ER 14:28 → 6 SOUTH 16:39 → 1 WEST ICU 18:00
PROC: 30233N1 Transfusion of Nonautologous Red Blood Cells into Peripheral Vein, Percutaneous Approach (ICD-10-PCS; principal; 2017-10-14 13:23)
PROC: 0DB68ZX Excision of Stomach, Via Natural or Artificial Opening Endoscopic, Diagnostic (ICD-10-PCS; 2017-10-14 13:23)
PROC: 0DJD8ZZ Inspection of Lower Intestinal Tract, Via Natural or Artificial Opening Endoscopic (ICD-10-PCS; 2017-10-14 13:23)
PROC: 0T9B30Z Drainage of Bladder with Drainage Device, Percutaneous Approach (ICD-10-PCS; 2017-10-14 13:23)
DX: K25.4 Chronic or unspecified gastric ulcer with hemorrhage (principal); E43 Unspecified severe protein-calorie malnutrition; N17.9 Acute kidney failure, unspecified; J84.9 Interstitial pulmonary disease, unspecified; E87.0 Hyperosmolality and hypernatremia; E11.65 Type 2 diabetes mellitus with hyperglycemia; E11.22 Type 2 diabetes mellitus with diabetic chronic kidney disease; D62 Acute posthemorrhagic anemia; E87.1 Hypo-osmolality and hyponatremia; N13.30 Unspecified hydronephrosis; E83.42 Hypomagnesemia; E87.5 Hyperkalemia; K92.1 Melena; N13.9 Obstructive and reflux uropathy, unspecified; N40.1 Benign prostatic hyperplasia with lower urinary tract symptoms; D63.8 Anemia in other chronic diseases classified elsewhere; N18.3 Chronic kidney disease, stage 3 (moderate); J47.9 Bronchiectasis, uncomplicated; I12.9 Hypertensive chronic kidney disease with stage 1 through stage 4 chronic kidney disease, or unspecified chronic kidney disease; Z79.1 Long term (current) use of non-steroidal anti-inflammatories (NSAID); Z79.82 Long term (current) use of aspirin; E03.9 Hypothyroidism, unspecified; K21.9 Gastro-esophageal reflux disease without esophagitis; K57.90 Diverticulosis of intestine, part unspecified, without perforation or abscess without bleeding; Z82.49 Family history of ischemic heart disease and other diseases of the circulatory system; Z83.3 Family history of diabetes mellitus; Z98.49 Cataract extraction status, unspecified eye; E86.0 Dehydration; K25.9 Gastric ulcer, unspecified as acute or chronic, without hemorrhage or perforation
CPT/HCPCS: 36415; 51102; 71045; 74176; 76942; 80048; 80053; 80069; 81001; 82274; 82607; 82728; 82746; 82962; 83540; 83550; 83690; 83735; 85014; 85018; 85025; 85027; 85045; 85610; 86850; 86900; 86901; 86920; 87040; 87086; 87641; 88305; 88342; 93005; 97161-GP; 97165-GO; 99152; C1769; C1892; C1894; J0610; J1756; J1815; J2250; J2704; J3010; J3475; J3490; J7030; J7120; P9016; Q9967